=== PATIENT | male | born 1955 | race Caucasian/White ===

== ENCOUNTER 2017-12-20 09:00 | Outpatient (RCR) ==
--- NOTE | 2017-12-10 11:08 | RS.OPPTEV2 ---
Date of Note: 12/10/17 Visit #: 1 Date of Evaluation: 12/10/17 Payer Source: Insurance Surgery Performed?: No Treatment Diagnosis: neck pain History of Condition/Mechanism of Injury:: pt states that he has had neck pain on and off for several years, however has gotten worse in last few months affecting his sleep as well as ability to drive and ride his motorcycle. Prior Level of Function.....Patient was independent with: ADL's, Self Care, Ambulation/Mobility, Community Integration/Access Functional Limitations: Sleep, Reaching, Pushing, Pulling, Lifting, Carrying Current Subjective/complaints:: pt states he cannot find a comfortable position stating that he is love to get 4-5 hours of sleep on a good night. pt states that his helps him to look both ways when driving. States he is unable to ride his motorcycle due to cervical limitations. Treatment Side (optional): Bilateral *Precautions: n/a Medical History Medical History: Hypertension, Arthritis Smoking Status: Never smoker Diagnostic Testing/Imaging:: none noted Hx Home Medications: pt did not bring list of meds. Patient's Goals: Decrease pain in cervical spine. Pain Assessment - Pain Description Pain Location: cervical spine Pain Description: Radiating, Sharp, Aching, Chronic Current Pain Intensity: 5/10 at rest Worst Pain Intensity: 10/10 Other Comments regarding Pain:: states driving is what hurts the most Functional Outcome Measure Neck Disability Index: 21 - G Codes & Severity Modifier G Codes & Modifier: n/a Source of G Code score: n/a Observation - Observation Posture: Forward Head, Rounded Shoulders, Increased Thoracic Kyphosis, Decreased Cervical Lordosis Handedness: Right Gait - Gait Pattern General Gait Pattern Observation: No Deviations/Normal General Range of Motion: BUE shld flex WFL's, L shld with pain, BLE WFLs Muscle Strength: BUE shld flex 4+/5 with pain, elbow flex/ext 5/5. BLE 5/5 - ROM Cervical Right Rotation: 20 Cervical Left Rotation: 30 Cervical Spine Range of Motion Limitations: Soft Tissue Tightness, Muscle Weakness, Pain Comments: cervical lat flex significantly limited due to pain <10. cervical flex WFL's with pain. cervical ext limited due to pain approx 40 - Strength Cervical Extension: 3- Fair- Cervical Flexion: 3 Fair Cervical Lateral Flexion: 2 Poor Cervical Rotation: 2+ Poor+ - Special Tests Foraminal Compression: Positive Left, Positive Right Palpation Palpation Findings: Tenderness, Trigger Point, Muscle Guarding Comments:: pt with tenderness to cervical paraspinals with trigger points noted in B upper traps as well as muscle guarding to upper traps, cervical paraspinal Sensation - Sensation Right Upper Extremity: Intact/Normal Left Upper Extremity: Intact/Normal Right Lower Extremity: Intact/Normal Left Lower Extremity: Intact/Normal Balance - Sitting Balance Static Sitting Balance: Normal Dynamic Sitting Balance: Normal - Standing Balance Static Standing Balance: Normal Dynamic Standing Balance: Normal - Treatment Modality: Electrical Stim Unattended Parameters/Method Applied: IFC x 20 mins at 10v Treatment Area: cervical/upper trap area Patient Position: Right Sidelying - Heat/Cryotherapy Treatment: Hot Pack Comments:: cervical spine Interventions - Exercise/Activities/Manual Therapy Exercises/Activities: pt performed cervical retraction x 5, scapular retraction x 5, corner stretch, upper trap and neck stretch. Manual Therapy: n/a HOME EXERCISE PROGRAM: pt given written HEP including cervical retraction, scapular retraction, corner stretch, upper trap stretch, neck stretch - Charges Timed Code Treatment Minutes: 36 Total Treatment Time: 58 Procedures billed for this date of service:: eval low, estim unattended, hot pack EVALUATION COMPLEXITY LEVEL EVALUATION COMPLEXITY LEVEL: HISTORY: Low (HTN, cervical pain), EXAM OF BODY SYSTEMS: Medium (pain, ROM, strength, posture), CLINICAL PRESENTATION: Low, CLINICAL DECISION MAKING: Low Assessment Assessment: pt presents with cervical pain radiating into B shlds R worse than L. pt with significantly limited cervical ROM due to pain with muscle guarding, trigger points noted. Patient Education: Home Exercise Program, Education of Plan of Care Rehab Potential: Good Short Term Goals Goal #1: pt with improved cervical ROM rotation R 30, L 40, side bending >10 Goal to be met by: 12/24/17 Goal #2: Rate pain < 5 at rest Goal to be met by: 12/24/17 Goal #3: pt report increased ability to turn head while driving Goal to be met by: 12/24/17 Intermediate Goals Goal #1: pt rate pain <4 at rest Goal to be met by: 01/07/18 Goal #2: pt cervical ROM flex/ext, cervical rotation WFL's, side bending improved Goal to be met by: 01/07/18 Goal #3: pt report being able to have >4 hours sleep uninterrupted Goal to be met by: 01/07/18 Goal #4: pt able to turn head while driving to safely drive alone. Goal to be met by: 01/07/18 Plan - Treatment to be Provided Procedures: Therapeutic Exercises, Therapeutic Activity, Neuromuscular Rehab, Manual Therapy, Massage, Patient Education Modalities: Electrical Stimulation, Ultrasound/Phonophoresis, Class IV Laser, Cryotherapy, Hot Packs - Treatment Plan Frequency: 2-3x a week Duration: 4 weeks ORDER # VISITS AND/OR THROUGH DATE: 01/07/18 - Treatment Code (1) Neck pain Code(s): M54.2 - CERVICALGIA (2) Muscle tightness Code(s): M62.89 - OTHER SPECIFIED DISORDERS OF MUSCLE
--- NOTE | 2017-12-13 15:53 | RS.OPPTDN ---
Subjective Date of Note: 12/13/17 Visit #: 2 Date of Evaluation: 12/10/17 Payer Source: Insurance Treatment Diagnosis: neck pain Current Subjective/complaints:: Reports neck pain that limits most daily activities, and pain is worse in the late afternoon. Reports a decrease in discomfort and muscle tension following treatment today. *Precautions: n/a Pain Assessment - Pain Description Pain Location: Neck Pain Description: Tightness, Aching Current Pain Intensity: mod - Treatment Modality: Electrical Stim Unattended Parameters/Method Applied: [id number] HVGC to 125-135p.v. with 4 small pads to the cervical paraspinals and trap trigger points with HP prior to MT and EX. Patient Position: Supine - Heat/Cryotherapy Treatment: Hot Pack (with Estim ) Interventions - Exercise/Activities/Manual Therapy Exercises/Activities: pt performed cervical retraction, scap retraction. Assisted cervical lateral flexion and rotation stretching. Anterior chest stretch at corner. Postural correction and cervical retraction at wall. Patient given copy of new exercise. Total minutes of Exercise: 12mins Manual Therapy: 20mins Soft and deep tissue massage along traps. Trigger point release at cervical paraspinals and traps. Total minutes of Manual Therapy: 20mins HOME EXERCISE PROGRAM: pt given written HEP including cervical retraction, scapular retraction, corner stretch, upper trap stretch, neck stretch - Charges Timed Code Treatment Minutes: 32mins Total Treatment Time: 52mins Procedures billed for this date of service:: HP, Estim unattended, MT, EX Assessment: Patient reports a reduction in pain and muscle tension. He is motivated to work on HEP. Patient Education: Education of diagnosis, Body/Joint mechanics, Home Exercise Program, Home Safety Patient demonstrates compliance with HEP?: Yes Short Term Goals Goal #1: pt with improved cervical ROM rotation R 30, L 40, side bending >10 Goal to be met by: 12/24/17 Goal #2: Rate pain < 5 at rest Goal to be met by: 12/24/17 Goal #3: pt report increased ability to turn head while driving Goal to be met by: 12/24/17 [facility] Goals Goal #1: pt rate pain <4 at rest Goal to be met by: 01/07/18 Goal #2: pt cervical ROM flex/ext, cervical rotation WFL's, side bending improved Goal to be met by: 01/07/18 Goal #3: pt report being able to have >4 hours sleep uninterrupted Goal to be met by: 01/07/18 Goal #4: pt able to turn head while driving to safely drive alone. Goal to be met by: 01/07/18 Plan PLAN OF CARE EXPIRES ON:: 01/07/18 ORDER # VISITS AND/OR THROUGH DATE: 01/07/18 PLAN: Continue modalities, manual therapy, and postural exercises to reduce pain and increase functional activity level.
--- NOTE | 2017-12-16 12:00 | RS.OPPTDN ---
Subjective Date of Note: 12/16/17 Visit #: 3 Date of Evaluation: 12/10/17 Payer Source: Insurance Treatment Diagnosis: neck pain Current Subjective/complaints:: Patient reports his pain is better this morning. States his pain usually increases as the day goes on. Reports a decrease in discomfort following treatment today. *Precautions: n/a Pain Assessment - Pain Description Pain Location: neck Pain Description: Tightness, Aching Current Pain Intensity: 4/10 - Treatment Modality: Electrical Stim Unattended Parameters/Method Applied: [id number] HVGC to 155p.v. with 4 small pads to the cervical paraspinals and trap trigger points with HP prior to MT and EX. Patient Position: Right Sidelying - Heat/Cryotherapy Treatment: Hot Pack (with Estim ) Interventions - Exercise/Activities/Manual Therapy Exercises/Activities: Assisted gentle stretch of cervical lateral flexion and rotation in supine and in sitting. Manually resisted cervical retraction. In sitting, scap retraction, and began green tband resisted scapular retraction. Anterior chest stretch. Patient given copy of new exercise. Total minutes of Exercise: 10mins Manual Therapy: 18mins In supine, gentle manual cervical traction and occipital release. Soft and deep tissue massage along traps, with focus on trigger point release at cervical paraspinals and traps. Total minutes of Manual Therapy: 18mins HOME EXERCISE PROGRAM: pt given written HEP including cervical retraction, scapular retraction, corner stretch, upper trap stretch, neck stretch - Charges Timed Code Treatment Minutes: 28mins Total Treatment Time: 48mins Procedures billed for this date of service:: HP, Estim unattended, MT, EX Assessment: Patient responding to treatment with reports of reduction in neck pain and muscle tightness. Patient Education: Education of diagnosis, Body/Joint mechanics, Home Exercise Program, Home Safety, Activity Modification Comments: Patient education of dx, spinal mechanics, need for postural correction, and HEP. 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 Goal to be met by: 01/07/18 Plan PLAN OF CARE EXPIRES ON:: 01/07/18 ORDER # VISITS AND/OR THROUGH DATE: 01/07/18 PLAN: Conitnue modalities, manual therapy, and progressive exercise to reduce pain and increase cervical mobility.
--- NOTE | 2017-12-18 11:13 | RS.OPPTDN ---
Subjective Date of Note: 12/18/17 Visit #: 4 Date of Evaluation: 12/10/17 Payer Source: Insurance Treatment Diagnosis: neck pain Current Subjective/complaints:: Patient reports a flair-up of pain following last treatment session. States pain was high and he took pain medication and went to bed. Reports feeling much better following modalities and manual therapy today. *Precautions: n/a Pain Assessment - Pain Description Pain Location: cervical spine Current Pain Intensity: 5/10 - Treatment Modality: Electrical Stim Unattended Parameters/Method Applied: [id number] HVGC to 140p.v. with 2 small pads to each cervical paraspinals and trap trigger points with HP prior to MT. Patient Position: Supine - Heat/Cryotherapy Treatment: Hot Pack ([id number] with Estim ) Interventions - Exercise/Activities/Manual Therapy Exercises/Activities: Limited assisted gentle stretch of cervical lateral flexion and isometric cervical retraction. Total minutes of Exercise: 2mins Manual Therapy: 24mins. In sitting, Soft and deep tissue massage along cervical paraspinals and traps, with focus on trigger point release. Total minutes of Manual Therapy: 24mins HOME EXERCISE PROGRAM: pt given written HEP including cervical retraction, scapular retraction, corner stretch, upper trap stretch, neck stretch - Charges Timed Code Treatment Minutes: 26mins Total Treatment Time: 46mins Procedures billed for this date of service:: HP, Estim unattended, MTx2 Assessment: Patient with poor tolerance of occipital release last session. Focus on tissue massage and trigger point release today and patient reports a better response. Patient Education: Home Exercise Program Comments: Patient education of need to continue postural correction exercises of isometric cervical retraction, anterior chest or doorway stretch, and tband for scap retraction/postural strengthening. Patient demonstrates compliance with HEP?: Yes Short Term Goals Goal #1: pt with improved cervical ROM rotation R 30, L 40, side bending >10 Goal to be met by: 12/24/17 Goal #2: Rate pain < 5 at rest Goal to be met by: 12/24/17 Progress towards Goal:: Progressing Goal #3: pt report increased ability to turn head while driving Goal to be met by: 12/24/17 Progress towards Goal:: No Change [facility] Goals Goal #1: pt rate pain <4 at rest Goal to be met by: 01/07/18 Progress towards goal: Progressing Goal #2: pt cervical ROM flex/ext, cervical rotation WFL's, side bending improved Goal to be met by: 01/07/18 Goal #3: pt report being able to have >4 hours sleep uninterrupted Goal to be met by: 01/07/18 Goal #4: pt able to turn head while driving to safely drive alone. Goal to be met by: 01/07/18 Plan PLAN OF CARE EXPIRES ON:: 01/07/18 ORDER # VISITS AND/OR THROUGH DATE: 01/07/18 PLAN: Continue modalities, manual therapy, and postural correction exercise to reduce pain and increase functional mobiity.
--- NOTE | 2017-12-20 14:56 | RS.OPPTDN ---
Subjective Date of Note: 12/20/17 Visit #: 5 Date of Evaluation: 12/10/17 Payer Source: Insurance Treatment Diagnosis: neck pain Current Subjective/complaints:: Patient reports feeling much better after last treatment. States pain decreased and he has had no flair-ups. Reports he is doing HEP. *Precautions: n/a Pain Assessment - Pain Description Pain Location: neck Pain Description: Aching Current Pain Intensity: 4-5/10 Other Comments regarding Pain:: Reports a decrease in muscle tension following modalities and manual therapy, does not rate on scale. - Treatment Modality: Electrical Stim Unattended Parameters/Method Applied: [id number] HVGC to 155p.v. with 4 large pads today, along cervical paraspinals and trap trigger points with HP. Patient Position: Supine - Heat/Cryotherapy Treatment: Hot Pack ([id number] with Estim ) Interventions - Exercise/Activities/Manual Therapy Exercises/Activities: Assisted gentle stretch of cervical lateral flexion and isometric cervical retraction. Total minutes of Exercise: 3mins Manual Therapy: 23mins. In sitting, Soft and deep tissue massage along cervical paraspinals and traps, with focus on trigger point release. Right trap muscle tone greater than left. Massage to the bilateral SCM. Total minutes of Manual Therapy: 23mins HOME EXERCISE PROGRAM: pt given written HEP including cervical retraction, scapular retraction, corner stretch, upper trap stretch, neck stretch - Charges Timed Code Treatment Minutes: 26mins Total Treatment Time: 46mins Procedures billed for this date of service:: HP, Estim unattended, MT2 Assessment: Patient responding well to treatment with reports of some pain reduction. He continues to have limitation of cervical ROM, and will need to progress exercise. 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 Goal to be met by: 01/07/18 Plan PLAN OF CARE EXPIRES ON:: 01/07/18 ORDER # VISITS AND/OR THROUGH DATE: 01/07/18 PLAN: Continue modalities, manual therapy, and progressive exercise to reduce pain and increase ROM.
== END 2017-12-20 23:59 ==
PROVIDERS: ATTEND Internal Medicine
DX: M54.2 Cervicalgia (principal); M62.89 Other specified disorders of muscle

== ENCOUNTER 2018-01-03 09:00 | Outpatient (RCR) ==
--- NOTE | 2017-12-25 13:58 | RS.OPPTDN ---
Subjective Date of Note: 12/25/17 Visit #: 6 Date of Evaluation: 12/10/17 Payer Source: Insurance Treatment Diagnosis: neck pain Current Subjective/complaints:: Patient reports some progress with decreased pain and increased motion in neck. *Precautions: n/a Pain Assessment - Pain Description Pain Location: Neck Current Pain Intensity: 3-4/10 Worst Pain Intensity: 6/10 in the evenings - Treatment Modality: Electrical Stim Unattended Parameters/Method Applied: [id number] HVCG to 145p.v. to bilateral cervical paraspinals and trap trigger points with 4 large pads and HP prior to MT. Patient Position: Supine - Heat/Cryotherapy Treatment: Hot Pack ([id number] with Estim ) Interventions - Exercise/Activities/Manual Therapy Exercises/Activities: Assisted gentle stretch of cervical lateral flexion and isometric cervical retraction. Starting position for wall angels and postural correction. Total minutes of Exercise: 5mins Manual Therapy: 23mins. In sitting, Soft and deep tissue massage along cervical paraspinals and traps, with focus on trigger point release. Right trap muscle tone greater than left. Massage to the bilateral SCM. Total minutes of Manual Therapy: 23mins HOME EXERCISE PROGRAM: pt given written HEP including cervical retraction, scapular retraction, corner stretch, upper trap stretch, neck stretch - Charges Timed Code Treatment Minutes: 28mins Total Treatment Time: 48mins Procedures billed for this date of service:: HP, Estim unattended, MTx2 Assessment: Patient responding to treatment with reports of reduction in pain and increase in ROM. Patient Education: Body/Joint mechanics, Home Exercise Program Comments: Patient education on need to progress postural correction. 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 Goal to be met by: 01/07/18 Plan PLAN OF CARE EXPIRES ON:: 01/07/18 ORDER # VISITS AND/OR THROUGH DATE: 01/07/18 PLAN: Continue modalities, manual therapy, and progressive exercise to reduce pain and increase functional activity level.
--- NOTE | 2017-12-27 15:44 | RS.OPPTDN ---
Subjective Date of Note: 12/27/17 Visit #: 7 Date of Evaluation: 12/10/17 Payer Source: Insurance Treatment Diagnosis: neck pain Current Subjective/complaints:: Patient reports a decrease in pain in the neck with no flair-ups since last session. States treatment seems to be helping and he is working on HEP. ROM continues to be limited. *Precautions: n/a Pain Assessment - Pain Description Pain Location: neck Current Pain Intensity: mild this morning Other Comments regarding Pain:: Patient reports pain continues to increase in the afternoon, but is not as high as it was prior to starting therapy. - Treatment Modality: Electrical Stim Unattended ([id number] with Estim) Parameters/Method Applied: [id number] HVCG to the bilateral cervical paraspinals and trap trigger points with 4 large pads to 150p.v. with HP prior to MT. Patient Position: Supine - Heat/Cryotherapy Treatment: Hot Pack Interventions - Exercise/Activities/Manual Therapy Exercises/Activities: Assisted gentle stretch of cervical lateral flexion and isometric cervical retraction. Patient education of proper head position for muscle engagement with cervical retraction. No new additions to HEP. Total minutes of Exercise: 4mins Manual Therapy: 23mins. In sitting, Soft and deep tissue massage along cervical paraspinals and traps, with focus on trigger point release. Right trap muscle tone greater than left. Massage to the bilateral SCM. Total minutes of Manual Therapy: 23mins HOME EXERCISE PROGRAM: pt given written HEP including cervical retraction, scapular retraction, corner stretch, upper trap stretch, neck stretch - Charges Timed Code Treatment Minutes: 27mins Total Treatment Time: 47mins Procedures billed for this date of service:: HP, Estim unattended, MTx2 Assessment: Patient responding to treatment with reports of decrease in pain and increase in cervical ROM. 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 Goal to be met by: 01/07/18 Plan PLAN OF CARE EXPIRES ON:: 01/07/18 ORDER # VISITS AND/OR THROUGH DATE: 01/07/18 PLAN: Continue modalities and progress postural correction exercises.
--- NOTE | 2017-12-30 14:00 | RS.OPPTDN ---
Subjective Date of Note: 12/30/17 Visit #: 8 Date of Evaluation: 12/10/17 Payer Source: Insurance Treatment Diagnosis: neck pain Current Subjective/complaints:: Patient reports continued improvement in pain and ROM. States he is working on HEP, but has difficulty with postural correction at wall. *Precautions: n/a Pain Assessment - Pain Description Pain Location: neck Current Pain Intensity: mild to mod Other Comments regarding Pain:: Reports pain continues to increase as the day progresses, but it continues to decrease. - Treatment Modality: Electrical Stim Unattended Parameters/Method Applied: [id number] HVGC to 160-170p.v. with 4 large pads to the bilateral cervical paraspinals and trap trigger points with HP. Patient Position: Supine - Heat/Cryotherapy Treatment: Hot Pack ([id number] with Estim ) Interventions - Exercise/Activities/Manual Therapy Exercises/Activities: Assisted gentle stretch of cervical lateral flexion and isometric cervical retraction. Reviewed HEP. Total minutes of Exercise: 3mins Manual Therapy: 24mins. In sitting, Soft and deep tissue massage along cervical paraspinals and traps, with focus on trigger point release. Right trap muscle tone greater than left. Total minutes of Manual Therapy: 24mins HOME EXERCISE PROGRAM: pt given written HEP including cervical retraction, scapular retraction, corner stretch, upper trap stretch, neck stretch - Charges Timed Code Treatment Minutes: 27mins Total Treatment Time: 47mins Procedures billed for this date of service:: HP, Estim unattended, MT2 Assessment: Patient responding well to treatment with reports of reduction in pain. Patient Education: Body/Joint mechanics, Home Exercise Program Patient demonstrates compliance with HEP?: Yes Short Term Goals Goal #1: pt with improved cervical ROM rotation R 30, L 40, side bending >10 Goal to be met by: 12/24/17 Progress towards Goal:: Partially Met Comments:: Cervical rotation right 40, left 45, and side bending 10-15 degrees. 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 Goal to be met by: 01/07/18 Plan PLAN OF CARE EXPIRES ON:: 01/07/18 ORDER # VISITS AND/OR THROUGH DATE: 01/07/18 PLAN: Continue modalities, manual therapy, and progress with postural exercises to reduce pain and increase functional activity level.
--- NOTE | 2018-01-01 13:19 | RS.OPPTDN ---
Subjective Date of Note: 01/01/18 Visit #: 9 Date of Evaluation: 12/10/17 Payer Source: Insurance Treatment Diagnosis: neck pain Current Subjective/complaints:: Patient reports continued progress with pain reduction and with with movement of the cervical spine. *Precautions: n/a Pain Assessment - Pain Description Pain Location: neck Current Pain Intensity: mild at rest - Treatment Modality: Electrical Stim Unattended Parameters/Method Applied: [id number] HVGC to 150p.v. with 4 large pads to the bilateral cervical paraspinals and bilateral trap trigger points with HP prior to MT. Patient Position: Supine - Heat/Cryotherapy Treatment: Hot Pack ([id number] with Estim ) Interventions - Exercise/Activities/Manual Therapy Exercises/Activities: Assisted gentle stretch of cervical lateral flexion and isometric cervical retraction. Began levator scap stretch. Total minutes of Exercise: 4mins Manual Therapy: 25mins. In sitting, Soft and deep tissue massage along cervical paraspinals and traps. Trigger point release along upper traps and cervical paraspinals. Active trigger point released along mid right cervical paraspinals , with increased left rotation noted. Total minutes of Manual Therapy: 25mins HOME EXERCISE PROGRAM: pt given written HEP including cervical retraction, scapular retraction, corner stretch, upper trap stretch, neck stretch - Objective Findings Observations,measurements,etc.: Assisted left cervical rotation 45-50 degrees, right cervical rotation 55mins. - Charges Timed Code Treatment Minutes: 29mins Total Treatment Time: 49mins Procedures billed for this date of service:: HP, Estim unattended, MTx2 Assessment: Patient responding well to treatment with reports of pain reduction and demos increased cervical ROM. Patient Education: Body/Joint mechanics Patient demonstrates compliance with HEP?: Yes Short Term Goals Goal #1: pt with improved cervical ROM rotation R 30, L 40, side bending >10 Goal to be met by: 12/24/17 Progress towards Goal:: Partially Met Goal #2: Rate pain < 5 at rest Goal to be met by: 12/24/17 Progress towards Goal:: Partially Met Goal #3: pt report increased ability to turn head while driving Goal to be met by: 12/24/17 Progress towards Goal:: Progressing Alf Goals Goal #1: pt rate pain <4 at rest Goal to be met by: 01/07/18 Progress towards goal: Progressing Goal #2: pt cervical ROM flex/ext, cervical rotation WFL's, side bending improved Goal to be met by: 01/07/18 Goal #3: pt report being able to have >4 hours sleep uninterrupted Goal to be met by: 01/07/18 Progress towards goal: Progressing Goal #4: pt able to turn head while driving to safely drive alone. Goal to be met by: 01/07/18 Plan PLAN OF CARE EXPIRES ON:: 01/07/18 ORDER # VISITS AND/OR THROUGH DATE: 01/07/18 PLAN: Continue treatment and progress postural exercise to reduce pain and increase functional activity level.
--- NOTE | 2018-01-03 12:59 | RS.OPPTDN ---
Subjective Date of Note: 01/03/18 Visit #: 10 Date of Evaluation: 12/10/17 Payer Source: Insurance Treatment Diagnosis: neck pain Current Subjective/complaints:: Patient reports continued improvement in pain reduction and in motion of the cervical spine. *Precautions: n/a Pain Assessment - Pain Description Pain Location: neck Current Pain Intensity: mild to mod - Treatment Modality: Electrical Stim Unattended Parameters/Method Applied: [id number] HVGC to 155p.v. with 4 large pads to the bilateral cervical paraspinals and trap trigger points prior to MT. Patient Position: Supine - Heat/Cryotherapy Treatment: Hot Pack (with Estim ) Interventions - Exercise/Activities/Manual Therapy Exercises/Activities: Assisted gentle stretch of cervical lateral flexion and isometric cervical retraction. Total minutes of Exercise: 2mins Manual Therapy: 20mins. In sitting, Soft and deep tissue massage along cervical paraspinals and traps. Trigger point release along upper traps and cervical paraspinals. Active trigger point released along mid right cervical paraspinals , with increased left rotation noted. Total minutes of Manual Therapy: 20mins HOME EXERCISE PROGRAM: pt given written HEP including cervical retraction, scapular retraction, corner stretch, upper trap stretch, neck stretch - Objective Findings Observations,measurements,etc.: Cervcial rotation to right 55 degrees or slightly better, and left approx 50 degrees. Continues to demo forward head posture, but working on postural correction. - Charges Timed Code Treatment Minutes: 22mins Total Treatment Time: 42mins Procedures billed for this date of service:: HP, Estim unattended, MT Assessment: Patient reporting improvement in pain, ROM, and consistency in HEP. Patient Education: Home Exercise Program Patient demonstrates compliance with HEP?: Yes Short Term Goals Goal #1: pt with improved cervical ROM rotation R 30, L 40, side bending >10 Goal to be met by: 12/24/17 Progress towards Goal:: Partially Met Goal #2: Rate pain < 5 at rest Goal to be met by: 12/24/17 Progress towards Goal:: Partially Met Goal #3: pt report increased ability to turn head while driving Goal to be met by: 12/24/17 Progress towards Goal:: Progressing Custodial Goals Goal #1: pt rate pain <4 at rest Goal to be met by: 01/07/18 Progress towards goal: Progressing Goal #2: pt cervical ROM flex/ext, cervical rotation WFL's, side bending improved Goal to be met by: 01/07/18 Goal #3: pt report being able to have >4 hours sleep uninterrupted Goal to be met by: 01/07/18 Progress towards goal: Progressing Goal #4: pt able to turn head while driving to safely drive alone. Goal to be met by: 01/07/18 Plan PLAN OF CARE EXPIRES ON:: 01/07/18 ORDER # VISITS AND/OR THROUGH DATE: 01/07/18 PLAN: Continue and progress cervical ROM.
[2018-01-04 16:03] VITALS: BMI 31.5
== END 2018-01-19 23:59 ==
PROVIDERS: ATTEND Internal Medicine
DX: M54.2 Cervicalgia (principal)

== ENCOUNTER 2018-01-04 16:00 | Emergency (ER) ==
[2018-01-04 16:03] VITALS: BP 154/84; TEMP 98.4; BMI 31.5
--- NOTE | 2018-01-04 17:21 | ED.PDOC ---
General ED Provider: Dr. ALEXANDR CORNEJO Chief Complaint: Earache Stated Complaint: Patient is a 62 year old male who comes to the ER with right ear pain for 4 days Time Seen by Physician: 17:18 Mode of Arrival: Walk-In Information Source: Patient Nursing and Triage Documentation Reviewed and Agree: Yes Does patient meet sepsis criteria?: No System Inflammatory Response Syndrome: Not Applicable Sepsis Protocol: For patient's 13 years and over: Temp is 96.8 and below OR 101 and greater Pulse >90 BPM Resp >20/minute Acutely Altered Mental Status Are patient's symptoms suggestive of a new infection, such as: -Pneumonia -Skin, Soft Tissue -Endocarditis -UTI -Bone, Joint Infection -Implantable Device -Acute Abdominal Infection -Wound Infection -Meningitis -Blood Stream Catheter Infection -Unknown Review of Systems - Review Of Systems Constitutional: Reports: No symptoms Eyes: Reports: No symptoms Ears, Nose, Mouth, Throat: Reports: Ear pain (right ) Respiratory: Reports: No symptoms Cardiac: Reports: No symptoms GI: Reports: No symptoms : Reports: No symptoms Musculoskeletal: Reports: No symptoms Skin: Reports: No symptoms Neurological: Reports: No symptoms Endocrine: Reports: No symptoms Hematologic/Lymphatic: Reports: No symptoms All Other Systems: Reviewed and Negative Past Medical History - Past Medical History Previously Healthy: Yes Endocrine: Reports: Dyslipidemia Cardiovascular: Reports: Hypertension Respiratory: Reports: None Hematological: Reports: None Gastrointestinal: Reports: None Genitourinary: Reports: None Neuro/Psych: Reports: None Musculoskeletal: Reports: None Cancer: Reports: None - Surgical History General Surgical History: Reports: Cholecystectomy - Family History Family History: Reports: Unknown - Social History Smoking Status: Never smoker Hx Substance Use: No Alcohol Screening: None Physical Exam - Physical Exam Appearance: Ill-appearing Ill-appearing: Mild Pain Distress: Severe Eyes: PRABHJOT, EOMI, Conjunctiva clear ENT: Erythema, Exudate Respiratory: Airway patent, Breath sounds clear, Breath sounds equal, Respirations nonlabored Cardiovascular: RRR, Pulses normal, No rub, No murmur GI/: Soft, Nontender, No masses, Bowel sounds normal, No Organomegaly Musculoskeletal: Normal strength, ROM intact, No edema, No calf tenderness Skin: Warm, Dry, Normal color Neurological: Sensation intact, Motor intact, Reflexes intact, Cranial nerves intact, Alert, Oriented Psychiatric: Affect appropriate, Mood appropriate Critical Care Note - Critical Care Note Total Time (mins): 0 Course - Course Vital Signs: Temp Pulse Resp BP Pulse Ox 01/04/18 16:01 98.4 F 67 20 154/84 H 95 Departure - Departure Time of Disposition: 17:18 Disposition: HOME SELF-CARE Discharge Problem: Otitis externa Qualifiers: Otitis externa type: diffuse Chronicity: acute Laterality: right Qualified Code (s): H60.311 - Diffuse otitis externa, right ear Otitis media Qualifiers: Otitis media type: suppurative Chronicity: acute Laterality: right Recurrence: not specified as recurrent Spontaneous tympanic membrane rupture: without spontaneous rupture Qualified Code(s): H66.001 - Acute suppurative otitis media without spontaneous rupture of ear drum, right ear Instructions: Ear Infection (ED) Condition: Stable Pt referred to PMD for follow-up: Yes IPMP verified?: No Additional Instructions: Take medications as prescribed. Follow up with PCP in 3 days Prescriptions: Hydrocodone/Acetaminophen [[place] 5-325 Tablet] 1 tab PO Q6HR PRN #14 tablet PRN Reason: PAIN Amoxicillin/Potassium Clav [Augmentin 500-125 mg Tab] 1 tab PO Q8HR #30 tablet Neomycin/Polymyxin B/Hc Otic [Cortisporin Otic Susp] 3 drop OT Q8H #10 drops.susp Prednisone 20 mg PO DAILYWM #5 tablet Allergies/Adverse Reactions: Allergies No Known Allergies Allergy (Unverified 01/04/18 16:03) Home Medications: Ambulatory Orders Amoxicillin/Potassium Clav [Augmentin 500-125 mg Tab] 1 tab PO Q8HR #30 tablet 01/04/18 Clonidine HCl 0.2 mg PO DAILY 01/04/18 Dutasteride [Avodart] 0.5 mg PO EVERY OTHER DAY 01/04/18 Hydrocodone/Acetaminophen [[place] 5-325 Tablet] 1 tab PO Q6HR PRN #14 tablet Neomycin/Polymyxin B/Hc Otic [Cortisporin Otic Susp] 3 drop OT Q8H #10 drops.susp 01/04/18 Prednisone 20 mg PO DAILYWM #5 tablet 01/04/18 Rosuvastatin Calcium [Crestor] 5 mg PO BEDTIME 01/04/18 Silodosin [Rapaflo] 4 mg PO DAILY 01/04/18 Disposition Discussed With: Patient, Family
== END 2018-01-04 17:26 | disposition home or self-care (01) ==
LOC: ED 16:00
DX: H60.311 Diffuse otitis externa, right ear (principal); H66.001 Acute suppurative otitis media without spontaneous rupture of ear drum, right ear
CPT/HCPCS: 99282